=== PATIENT | female | born 1955 | race African-American/Black ===

== ENCOUNTER 2017-03-06 10:29 | Day surgery (SDC) | payer OTHER ==
[2017-03-01 17:29] VITALS: BMI 31.1
--- NOTE | 2017-03-06 12:46 | HP ---
Satellite H - Chief Complaint Chief Complaint: right trigger finger - Past Medical History Allergies/Adverse Reactions: Allergies Allergy/AdvReac Type Severity Reaction Status Date / Time Penicillins Allergy "Hives" Unverified 03/01/17 17:35 - Current Medications Current Medications: Home Medications Medication Instructions Recorded Omeprazole Magnesium [Prilosec 20 mg PO DAILY PRN 04/01/13 (OTC)] Albuterol Sulfate Inhaler - 1 - 2 inh PO PRN PRN 03/01/17 [Ventolin HFA Inhaler -] Montelukast Na [Singulair -] 10 mg PO DAILY 03/01/17 Hydrocodone/Acetaminophen [[place] 1 - 2 each PO Q6H #30 tablet MDD 8 03/06/17 5-325 Tablet] Satellite Physical Exam - Physical Examination Vital Signs: Vital Signs Period Temp Pulse Resp BP Sys/Dewitt Pulse Ox Last 24 Hr 98.1 F 90 18 125/71 100 General Appearance: Well Nourished, Well Developed, Alert & Oriented x3 ENT: Clear Lung: Normal air movement Heart: Regular rate & rhythm Extremities: Other (right ring finger- + ttp a1 nell, + locking, nvi) Neurological: Intact, Alert, Oriented Satellite Impression/Plan - Impression/Plan Impression: right ring trigger finger Operative Procedure: right ring trigger release Date to be Performed: 03/06/17
[2017-03-06] MEDS ORDERED: MIDAZOLAM HCL 2 MG/2 ML SINGLE DOSE VIAL ONE ×2 (13:46)
[2017-03-06] MEDS ORDERED: CLINDAMYCIN PHOSPHATE 600 MG/4 ML VIAL IVPB ONE (13:47)
[2017-03-06] MEDS ORDERED: PROPOFOL 20 ML ONE (13:50)
[2017-03-06] MEDS ORDERED: CLINDAMYCIN PHOSPHATE 600 MG/4 ML VIAL ONE (13:50)
[2017-03-06] MEDS ORDERED: BUPIVACAINE HCL/PF 0.5% (5MG/ML) 10 ML VIAL IJ ONE (13:57)
[2017-03-06] MEDS ORDERED: LIDOCAINE HCL 1%, 10 MG/ML (20ML VIAL) IJ ONE (13:57)
[2017-03-06] MEDS ORDERED: ACETAMINOPHEN 1000 MG/100 ML VIAL (NON FORMULARY) IVPB PRN (14:14)
[2017-03-06] MEDS ORDERED: ONDANSETRON 4 MG/2 ML VIAL IVPUSH PRN (14:14)
[2017-03-06] MEDS ORDERED: oxyCODONE HCL 5 MG TABLET PO PRN (14:14)
[2017-03-06] MEDS ORDERED: LACTATED RINGERS SOLUTION 1,000 ML IV SCH (14:15)
--- NOTE | 2017-03-06 14:15 | OP ---
Operative Note - Note: Operative Date: 03/06/17 Pre-Operative Diagnosis: right ring finger trigger finger Operation: right ring finger trigger finger release and tendon sheath excision Post-Operative Diagnosis: Same as Pre-op Surgeon: Alvarado Garvey Electric Shipyard Operator: Kev Menon Anesthesiologist/ROTATIONAL MOULDING OPERATOR: Oanh Alonso Anesthesia: General, Local Estimated Blood Loss (mls): 0 Drains, Volume Out (mls): 0 Blood Volume Replaced (mls): 0 Fluid Volume Replaced (mls): 500 Operative Report Dictated: Yes
--- NOTE | 2017-03-06 14:52 | SPEC ---
DATE OF OPERATION: 03/06/2017 PREOPERATIVE DIAGNOSIS: Right ring finger trigger finger. POSTOPERATIVE DIAGNOSIS: Right ring finger trigger finger. PROCEDURE: Right ring finger trigger finger release and tendon sheath excision. SURGEON: Delores Garvey MD MACHINE WHITENER: Kev Menon MD ANESTHESIOLOGIST: Celeste ANESTHESIA: MAC anesthesia with local injection of 6 mL of 0.5% Marcaine and 1% lidocaine mix. SPECIMEN: None. BLOOD LOSS: None. DRAINS: None. COMPLICATIONS: None. BLOOD GIVEN: None. INDICATIONS: The patient is a 61-year-old female with a preoperative diagnosis of a right ring finger trigger finger. After understanding the potential risks, complications, benefits, alternatives, benefits of the surgery vs. non-surgical treatment, the patient elected to undergo this procedure. PROCEDURE: The patient was brought to the operating room. IV was placed. IV sedation was given. One gram of intravenous Ancef given. A tourniquet was applied to the right upper arm and the right upper extremity was prepped and draped in sterile fashion. The entire case was done under 3.8 loupe magnification. A marking pen was utilized to jamal out a longitudinal incision in an already existing skin crease at the base of the right ring finger. Then, 6 mL of 0.5% Marcaine mixed with 1% lidocaine was injected in and around the incision. The right upper extremity was elevated, exsanguinated with an Esmarch bandage, and the tourniquet inflated to 250 mmHg. A No. 15 scalpel blade was utilized to cut down through the skin. Subcutaneous hemostasis was achieved with the bipolar cautery. Additional dissection was done with Littler scissors until I was able to directly visualize the A1 nell sheath in its entirety. Self-retaining retractors were placed into the wound. A Walsh elevator was used to free up the tissue on the radial side, the ulnar side distally and proximally under better visualization of A1 nell sheath. Next, using a fresh No. 15 scalpel blade, I excised the central one-third of the A1 nell sheath. I then completed the release, both distally and proximally, and brought the FDS and FDP tendons out through the wound with a Ragnell retractor. There were no abnormal points of compression. I was able to move the right ring finger without the tendons bunching up at all. The area was then copiously irrigated and washed out. I then checked one more time to make sure there were no abnormal points of compression. None were seen and therefore closure was begun. One stitch using 4-0 Vicryl was used in the deep dermal layer. Skin was reapproximated with 4-0 nylon sutures in a horizontal mattress fashion. The area was then washed and dried, covered with Xeroform gauze, sterile 4 x 4's, fluffs between the fingers, Webril and Coban. The tourniquet was taken down after a total tourniquet time of 10 minutes. There were no complications during the case. The patient tolerated the procedure well and was brought to the Ambulatory Recovery Room in stable condition. Kev Menon MD, dictating for MD DELORES Patel M.D. [id number]
[2017-03-06 15:59] VITALS: TEMP 98.2
[2017-03-06 18:01] VITALS: BP 130/70; PULSE 80
== END 2017-03-06 18:01 | disposition home or self-care (01) ==
LOC: JASU-SURG 10:29
PROVIDERS: ATTEND Orthopaedic Surgery
PROC: 0LB50ZZ Excision of Right Lower Arm and Wrist Tendon, Open Approach (ICD-10-PCS; 2017-03-06)
PROC: 0LN70ZZ Release Right Hand Tendon, Open Approach (ICD-10-PCS; principal; 2017-03-06 11:30)
DX: M65.341 Trigger finger, right ring finger (principal)
CPT/HCPCS: 94760

== ENCOUNTER 2017-12-06 12:49 | Emergency (ER) | payer OTHER ==
[2017-12-06 12:56] VITALS: BP 121/83; PULSE 88; TEMP 98; BMI 30.3
[2017-12-06] MEDS ORDERED: ALBUTEROL SO4 2.5/IPRATROPIUM 0.5 INH SOL 3 ML VIAL.NEB. NEB ONE ×2 (13:40→13:49)
[2017-12-06] MEDS ORDERED: predniSONE 20 MG TABLET (UD) PO ONE (13:40)
--- NOTE | 2017-12-06 13:40 | PDOC ---
History of Present Illness - General Chief Complaint: Asthma Stated Complaint: COUGH, WHEEZING Time Seen by Provider: 12/06/17 13:37 History Source: Patient Exam Limitations: No Limitations - History of Present Illness Initial Comments: 12/06/17 13:37 Patient is a 62-year-old female history of asthma, presents with 4 day of cough , wheezing feels a heaviness in chest when coughing. Cough is productive, emanuel sputum. Bronchospasm. Patient denies any chest pain, has shortness of breath with coughing. Back pain, no jaw pain. Patient was seen by her PMD yesterday given promethazine and clarithromycin however patient has not started medication yet. Past Medical History: Asthma, GERD. Allergies: Penicillin Medications: Pro-air, Singulair, omeprazole Family History: Non-contributory Social History: Denies smoking, alcohol use, or IVDU Review of Systems GENERAL/CONSTITUTIONAL: [No fever or chills. No weakness. No weight change.] HEAD, EYES, EARS, NOSE AND THROAT: [No change in vision. No ear pain or discharge. No sore throat. ] CARDIOVASCULAR: [No chest pain or shortness of breath.] RESPIRATORY: [ spasmodic cough, + wheezing, no hemoptysis or constipation. No rectal bleeding.] GENITOURINARY: [No dysuria, frequency, or change in urination.] MUSCULOSKELETAL: [No joint or muscle swelling or pain. No neck or back pain.] SKIN AND BREASTS: [No rash or easy bruising.] NEUROLOGIC: [No headache, vertigo, loss of consciousness, or loss of sensation.] PSYCHIATRIC: [No depression or anxiety.] ENDOCRINE: [No increased thirst. No abnormal weight change.] HEMATOLOGIC/LYMPHATIC: [No anemia, easy bleeding, or history of blood clots.] ALLERGIC/IMMUNOLOGIC: [No hives or skin allergy. No latex allergy.] Physical Exam: GENERAL: [The patient is awake, alert, and fully oriented, in no acute distress. ] HEAD: [Normal with no signs of trauma.] EYES: [Pupils equal, round and reactive to light, extraocular movements intact, sclera anicteric, conjunctiva clear.] ENT: [Ears normal, nares patent, oropharynx clear without exudates. Moist mucous membranes. No uvula deviation] NECK: [Normal range of motion, supple without lymphadenopathy, JVD, or masses.] LUNGS: Rhonchi and wheezing bilaterally, no crackles. HEART: [Regular rate and rhythm, normal S1 and S2 without murmur, rub or gallop. ] ABDOMEN: [Soft, nontender, normoactive bowel sounds. No guarding, no rebound. No masses. No bruising or abrasions] MUSCULOSKELETAL: [Normal range of motion, no edema. No clubbing or cyanosis. No cords, erythema, or tenderness. No CVA Tenderness with fist.] NEUROLOGICAL: [Cranial nerves II through XII grossly intact. Normal speech, normal gait.] SKIN: [Warm, Dry, normal turgor, no rashes or lesions noted.] 12/06/17 14:00 Past History - Past Medical History Allergies/Adverse Reactions: Allergies Allergy/AdvReac Type Severity Reaction Status Date / Time Penicillins Allergy Intermediate "Hives" Verified 12/06/17 14:35 Home Medications: Ambulatory Orders Albuterol Sulfate Inhaler - [Ventolin HFA Inhaler -] 1 - 2 inh PO PRN PRN Montelukast Na [Singulair -] 10 mg PO DAILY 03/01/17 Albuterol 0.083% Nebulizer Fang [Ventolin 0.083% Nebulizer Soln -] 1 neb NEB Q4H #30 vial 12/06/17 Clarithromycin [Biaxin -] 500 mg PO BID 12/06/17 Phenylephrine HCl/Prometh HCl [Promethazine-Phenylephrine Syr] 118 ml PO ASDIR 12/06/17 Prednisone [Deltasone] 20 mg PO DAILY #5 tablet 12/06/17 Anemia: No Asthma: Yes Cancer: No Cardiac Disorders: No CVA: No COPD: No CHF: No DVT: No Dementia: No Diabetes: No GI Disorders: Yes (GERD) Disorders: No HTN: No Hypercholesterolemia: No Liver Disease: No Seizures: No Thyroid Disease: No - Surgical History Abdominal Surgery: No Appendectomy: No Cardiac Surgery: No Cholecystectomy: No Lung Surgery: No Neurologic Surgery: No Orthopedic Surgery: No - Suicide/Smoking/Psychosocial Hx Smoking Status: No Smoking History: Never smoked Have you smoked in the past 12 months: No Number of Cigarettes Smoked Daily: 0 Information on smoking cessation initiated: No Hx Alcohol Use: No Drug/Substance Use Hx: No Substance Use Type: None Hx Substance Use Treatment: No *Physical Exam - Vital Signs Last Vital Signs Temp Pulse Resp BP Pulse Ox 98.0 F 88 18 121/83 100 12/06/17 12:53 12/06/17 12:53 12/06/17 12:53 12/06/17 12:53 12/06/17 12:53 Medical Decision Making - Medical Decision Making 12/06/17 13:49 A/P: Patient with URI and has been exacerbation Combivent and prednisone given in ER, will reevaluate. Combivent given with good result, however there is still bronchospasm, coughing noted. Second albuterol given. Patient is nontoxic appearing, no respiratory distress, s/p neb, the patient is sating 98%on room air. Comfortably with minimal coughing. I will DC patient home with albuterol for nebulizer, prednisone, patient to continue antibiotics and promethazine as ordered by Ramiro. I discussed the physical exam findings, ancillary test results and final diagnoses with the patient. I answered all of the patient's questions. The patient was satisfied with the care received and felt comfortable with the discharge plan and treatment plan. The patient will call to arrange follow-up and will return to the Emergency Department with any new, persistent or worsening symptoms. *DC/Admit/Observation/Transfer Diagnosis at time of Disposition: Upper respiratory infection Qualifiers: URI type: unspecified URI Qualified Code(s): J06.9 - Acute upper respiratory infection, unspecified - Discharge Dispostion Disposition: HOME Condition at time of disposition: Stable Admit: No - Prescriptions Prescriptions: Albuterol 0.083% Nebulizer Fang [Ventolin 0.083% Nebulizer Soln -] 1 neb NEB Q4H #30 vial Prednisone [Deltasone] 20 mg PO DAILY #5 tablet - Referrals Referrals: Suleman Collins MD [Primary Care Provider] - - Patient Instructions Printed Discharge Instructions: Asthma -- Adult, Acute Bronchitis (Alternative Therapy) Additional Instructions: Keep head of bed elevated 45 when sleeping Treatments every 4 hours as needed Cool air humidifier and sleeping Antibiotics and cough medicine as per PMD Followup in the primary care doctor's office in 2 days for evaluation. If any respiratory distress, increased cough, inability to drink, increased wheezing please return immediately to emergency department. - Post Discharge Activity Forms/Work/School Notes: Back to Work
[2017-12-06] MEDS ORDERED: predniSONE 20 MG TABLET (UD) ONE (13:49)
[2017-12-06] MEDS ORDERED: ALBUTEROL SO4 0.083% IH SOL 2.5 MG/3 ML VIAL.NEB. NEB ONE ×2 (14:29→14:30)
== END 2017-12-06 14:58 | disposition home or self-care (01) ==
LOC: JERFT 12:49
PROC: 3E0F7GC Introduction of Other Therapeutic Substance into Respiratory Tract, Via Natural or Artificial Opening (ICD-10-PCS; principal; 2017-12-06)
PROC: 3E0F7GC Introduction of Other Therapeutic Substance into Respiratory Tract, Via Natural or Artificial Opening (ICD-10-PCS; 2017-12-06)
DX: J98.01 Acute bronchospasm (principal); J06.9 Acute upper respiratory infection, unspecified
CPT/HCPCS: 99281-25

== ENCOUNTER 2019-04-16 14:49 | Emergency (ER) | payer OTHER | END 2019-04-16 16:02 | disposition home or self-care (01) | LOC: JERFT 14:49 ==

== ENCOUNTER 2021-06-10 13:40 | Emergency (ER) | payer OTHER ==
[2021-06-10 14:06] VITALS: BP 153/83; PULSE 86; TEMP 97; BMI 27.9
[2021-06-10] MEDS ORDERED: IBUPROFEN 400 MG TABLET (FP) PO ONE ×2 (14:18→14:46)
== END 2021-06-10 15:49 | disposition home or self-care (01) ==
LOC: JER 13:40
DX: M25.561 Pain in right knee (principal); M25.562 Pain in left knee; W01.0XXA Fall on same level from slipping, tripping and stumbling without subsequent striking against object, initial encounter
CPT/HCPCS: 73562-TC-LT-FY; 73562-TC-RT-FY; 99284-25

== ENCOUNTER 2022-01-10 16:10 | Emergency (ER) | payer OTHER ==
[2022-01-10 16:45] VITALS: BP 152/77; PULSE 83; TEMP 98; BMI 33.3
[2022-01-10] MEDS ORDERED: LIDOCAINE 5% TOPICAL PATCH TP ONE (17:41)
[2022-01-10] MEDS ORDERED: KETOROLAC TROMETHAMINE 30 MG/1 ML VIAL IM ONE (17:42)
[2022-01-10] MEDS ORDERED: LIDOCAINE 5% TOPICAL PATCH ONE (17:46)
[2022-01-10] MEDS ORDERED: KETOROLAC TROMETHAMINE 30 MG/1 ML VIAL ONE (17:46)
[2022-01-10 18:38] LABS: HCG,QUALITATIVE URINE Negative
[2022-01-10 18:44] LABS: URINE APPEARANCE CLEAR; URINE BILIRUBIN NEGATIVE (NEGATIVE); URINE COLOR YELLOW; URINE GLUCOSE (UA) NEGATIVE (NEGATIVE); URINE KETONE NEGATIVE (NEGATIVE); URINE LEUK ESTERASE NEGATIVE (NEGATIVE); URINE NITRITE NEGATIVE (NEGATIVE); URINE PROTEIN NEGATIVE (NEGATIVE); URINE UROBILINOGEN 0.2 mg/dL (0.2-1.0)
[2022-01-10] MEDS ORDERED: LIDOCAINE PATCH REMOVAL MC ONE (22:00)
== END 2022-01-10 18:56 | disposition home or self-care (01) ==
LOC: JERFT 16:10
PROC: 3E0233Z Introduction of Anti-inflammatory into Muscle, Percutaneous Approach (ICD-10-PCS; principal; 2022-01-10)
DX: M54.50 Low back pain, unspecified (principal)
CPT/HCPCS: 81003; 84703; 87086; 99284-25

== ENCOUNTER 2022-09-11 13:17 | Emergency (ER) | payer OTHER ==
[2022-09-11 13:44] VITALS: BP 124/78; PULSE 106; RESP 16; TEMP 99.9; BMI 31.1
[2022-09-11] MEDS ORDERED: DEXAMETHASONE SOD PHOSPHATE 10 MG/1 ML VIAL PO ONE (15:12)
[2022-09-11] MEDS: ALBUTEROL SO4 2.5/IPRATROPIUM 0.5 INH SOL 3 ML VIAL.NEB. NEB SCH ×3 (15:22→15:58)
[2022-09-11] MEDS ORDERED: DEXAMETHASONE SOD PHOSPHATE 10 MG/1 ML VIAL ONE (15:25)
[2022-09-11] MEDS ORDERED: ALBUTEROL SO4 2.5/IPRATROPIUM 0.5 INH SOL 3 ML VIAL.NEB. NEB ONE (15:25)
== END 2022-09-11 16:05 | disposition home or self-care (01) ==
LOC: JER 13:17
PROC: 3E0F7GC Introduction of Other Therapeutic Substance into Respiratory Tract, Via Natural or Artificial Opening (ICD-10-PCS; principal; 2022-09-11)
DX: J09.X2 Influenza due to identified novel influenza A virus with other respiratory manifestations (principal); R05.1 Acute cough; J02.9 Acute pharyngitis, unspecified
CPT/HCPCS: 0241U-QW; 99283-25; J1100

== ENCOUNTER 2023-08-07 17:22 | Emergency (ER) | payer OTHER ==
[2023-08-07 17:34] VITALS: RESP 18; BMI 34.6
[2023-08-07 18:32] VITALS: BP 129/82; PULSE 86; TEMP 99.1
[2023-08-07] MEDS ORDERED: ALBUTEROL SO4 2.5/IPRATROPIUM 0.5 INH SOL 3 ML VIAL.NEB. NEB ONE ×2 (19:36→20:03)
[2023-08-07 20:41] LABS: BASO % 0.5 % (0-2.0); EOS % 2.7 % (0-4.5); HEMATOCRIT 40.5 % (32.4-45.2); HEMOGLOBIN 13.5 GM/dL (10.7-15.3); LYMPH % 25.6 % (8-40); MCH 28.2 pg (25.7-33.7); MCHC 33.4 g/dl (32.0-36.0); MEAN CELL VOLUME 84.3 fl (80-96); MEAN PLT VOLUME 7.7 fl (7.5-11.1); MONO % 7.4 % (3.8-10.2); NEUT % 63.8 % (42.8-82.8); PLATELET COUNT 252 10^3/uL (134-434); RBC 4.81 M/mm3 (3.60-5.2); RDW 14.2 % (11.6-15.6); WHITE BLOOD COUNT 7.8 K/mm3 (4.0-10.0)
[2023-08-07 21:21] LABS: CALCIUM 8.6 mg/dL (8.5-10.1)
[2023-08-07 21:22] LABS: ALBUMIN 3.5 g/dl (3.4-5.0); BLOOD UREA NITROGEN 9.5 mg/dL (7-18)
[2023-08-07 21:25] LABS: CREATININE 0.6 mg/dL (0.55-1.3)
[2023-08-07 21:26] LABS: BILIRUBIN,TOTAL 0.2 mg/dL (0.2-1)
[2023-08-07 21:27] LABS: TOT PROT 6.6 g/dl (6.4-8.2)
[2023-08-07] MEDS ORDERED: ALBUTEROL SO4 HFA INHALER IH ONE ×2 (22:27→22:31)
[2023-08-07] MEDS ORDERED: methylPREDNISolone NA SUCC 125 MG/2 ML VIAL IVPB ONE (22:27)
[2023-08-07] MEDS ORDERED: methylPREDNISolone NA SUCC 125 MG/2 ML VIAL ONE (22:32)
== END 2023-08-07 23:43 | disposition home or self-care (01) ==
LOC: JER 17:22
PROC: 3E033GC Introduction of Other Therapeutic Substance into Peripheral Vein, Percutaneous Approach (ICD-10-PCS; principal; 2023-08-07)
PROC: 3E0F7GC Introduction of Other Therapeutic Substance into Respiratory Tract, Via Natural or Artificial Opening (ICD-10-PCS; 2023-08-07)
PROC: 3E0F7GC Introduction of Other Therapeutic Substance into Respiratory Tract, Via Natural or Artificial Opening (ICD-10-PCS; 2023-08-07)
DX: R05.9 Cough, unspecified (principal); R07.9 Chest pain, unspecified; J02.9 Acute pharyngitis, unspecified; R06.02 Shortness of breath; R06.2 Wheezing; Z20.822 Contact with and (suspected) exposure to COVID-19
CPT/HCPCS: 0241U-QW; 36415; 71046-TC-FY; 80053; 83880; 84484; 85025; 93005; 93010; 99285-25

== ENCOUNTER 2023-09-10 15:31 | Emergency (ER) | payer OTHER ==
[2023-09-10 15:45] VITALS: BP 139/84; PULSE 85; RESP 18; TEMP 97.6; BMI 31.1
[2023-09-10] MEDS: ALBUTEROL SO4 2.5/IPRATROPIUM 0.5 INH SOL 3 ML VIAL.NEB. NEB SCH ×2 (17:04→17:05)
[2023-09-10] MEDS ORDERED: ALBUTEROL SO4 2.5/IPRATROPIUM 0.5 INH SOL 3 ML VIAL.NEB. NEB ONE (17:06)
[2023-09-10] MEDS ORDERED: ACETAMINOPHEN WITH CODEINE 300MG/30MG TABLET PO ONE (17:44)
[2023-09-10] MEDS ORDERED: ACETAMINOPHEN WITH CODEINE 300MG/30MG TABLET ONE (17:54)
== END 2023-09-10 18:58 | disposition home or self-care (01) ==
LOC: JERFT 15:31
PROC: 3E0F7GC Introduction of Other Therapeutic Substance into Respiratory Tract, Via Natural or Artificial Opening (ICD-10-PCS; principal; 2023-09-10)
DX: R05.2 Subacute cough (principal); R06.02 Shortness of breath; M54.9 Dorsalgia, unspecified; Z20.822 Contact with and (suspected) exposure to COVID-19
CPT/HCPCS: 0241U-QW; 71046-TC-FY; 99284-25

== ENCOUNTER 2023-10-02 20:12 | Emergency (ER) | payer OTHER ==
[2023-10-02 20:39] VITALS: TEMP 98.6; BMI 31.4
[2023-10-03] MEDS ORDERED: ACETAMINOPHEN 325 MG TABLET (FP) PO ONE (01:03)
[2023-10-03] MEDS ORDERED: ACETAMINOPHEN 325 MG TABLET (FP) ONE ×2 (01:24→01:35)
[2023-10-03 03:49] VITALS: BP 157/76; PULSE 70; RESP 19
== END 2023-10-03 03:49 | disposition home or self-care (01) ==
LOC: JER 20:12
DX: M54.50 Low back pain, unspecified (principal); S39.012A Strain of muscle, fascia and tendon of lower back, initial encounter; M25.552 Pain in left hip; M54.2 Cervicalgia; R51.9 Headache, unspecified; V49.50XA Passenger injured in collision with unspecified motor vehicles in traffic accident, initial encounter; Y92.410 Unspecified street and highway as the place of occurrence of the external cause
CPT/HCPCS: 70450-TC; 72125-TC; 72131-TC; 72192-TC; 99284-25

== ENCOUNTER 2023-12-11 07:46 | Day surgery (SDC) | payer OTHER ==
[2023-12-06 09:56] VITALS: BMI 31.2
[2023-12-11] MEDS: PHENYLEPHRINE 2.5% OPTHALMIC DROP 2ML BOTTLE ONE (08:15)
[2023-12-11] MEDS: CIPROFLOXACIN 0.3% EYE DROPS 5 ML BOTTLE ONE (08:15)
[2023-12-11] MEDS: CYCLOPENTOLATE 2% OPHTH SOLN 2 ML BOTTLE ONE (08:15)
[2023-12-11] MEDS: TROPICAMIDE 1% OPHTH SOLN 15 ML BOTTLE ONE (08:15)
[2023-12-11] MEDS ORDERED: BSS (NA/CA/MG/K) BALANCED SALT SOLUTION OPHTH SOLN 15 ML BOTTLE ONE (09:00)
[2023-12-11] MEDS ORDERED: TETRACAINE 0.5% OPHTH SOLN 2 ML BOTTLE ONE (09:00)
[2023-12-11] MEDS ORDERED: CARBACHOL 0.01% INTRA-OCULAR 1.5 ML VIAL ONE (09:00)
[2023-12-11] MEDS ORDERED: LIDOCAINE 1% P/F 10 MG/ML VIAL ONE (09:00)
[2023-12-11] MEDS ORDERED: NEO/POLYMYX B SULF/DEXAMETH OPHTHALMIC 5ML BOTTLE ONE (09:00)
[2023-12-11] MEDS ORDERED: MIDAZOLAM HCL 2 MG/2 ML SINGLE DOSE VIAL ONE (09:37)
[2023-12-11 13:40] VITALS: TEMP 97.1
[2023-12-11 14:05] VITALS: BP 136/86; PULSE 74; RESP 16
== END 2023-12-11 11:40 | disposition home or self-care (01) ==
LOC: FASU 07:46
PROVIDERS: ATTEND Ophthalmology
PROC: 08RJ3JZ Replacement of Right Lens with Synthetic Substitute, Percutaneous Approach (ICD-10-PCS; principal; 2023-12-11 10:18)
DX: H26.8 Other specified cataract (principal)
CPT/HCPCS: 66984; V2632

== ENCOUNTER 2023-12-12 19:24 | Emergency (ER) | payer OTHER ==
[2023-12-12 19:41] VITALS: BP 141/97; PULSE 66; RESP 18; TEMP 97.9; BMI 68.9
[2023-12-12 21:39] LABS: BASO % 0.6 % (0-2.0); EOS % 0.5 % (0-4.5); HEMATOCRIT 46.7 % (32.4-45.2); HEMOGLOBIN 15.4 GM/dL (10.7-15.3); LYMPH % 22.1 % (8-40); MCH 28.4 pg (25.7-33.7); MCHC 32.9 g/dl (32.0-36.0); MEAN CELL VOLUME 86.4 fl (80-96); MONO % 6.4 % (3.8-10.2); NEUT % 70.4 % (42.8-82.8); PLATELET COUNT 286 10^3/uL (134-434); RBC 5.41 M/mm3 (3.60-5.2); WHITE BLOOD COUNT 11.6 K/mm3 (4.0-10.0)
[2023-12-12] MEDS ORDERED: ALBUTEROL SO4 2.5/IPRATROPIUM 0.5 INH SOL 3 ML VIAL.NEB. NEB ONE (21:48)
[2023-12-12 21:50] LABS: INR 1.09 (0.83-1.09); PROTHROMBIN TIME (PATIENT) 12.6 SEC (9.7-13.0)
[2023-12-12] MEDS: SODIUM CHLORIDE 0.9% 500 ML INFUS.BAG IV ONE (22:01)
[2023-12-12] MEDS: ALBUTEROL SO4 2.5/IPRATROPIUM 0.5 INH SOL 3 ML VIAL.NEB. NEB ONE (22:01)
[2023-12-12 22:05] LABS: CALCIUM 9.9 mg/dL (8.5-10.1)
[2023-12-12 22:06] LABS: BLOOD UREA NITROGEN 11.4 mg/dL (7-18)
[2023-12-12 22:08] LABS: MAGNESIUM 2.4 mg/dL (1.8-2.4)
[2023-12-12 22:09] LABS: BILIRUBIN,TOTAL 0.6 mg/dL (0.2-1); CREATININE 0.8 mg/dL (0.55-1.3)
[2023-12-12 22:11] LABS: TOT PROT 7.3 g/dl (6.4-8.2)
[2023-12-12 22:46] LABS: POTASSIUM 4.3 mmol/L (3.5-5.1)
== END 2023-12-13 00:10 | disposition home or self-care (01) ==
LOC: JER 19:24
PROC: 3E0F7GC Introduction of Other Therapeutic Substance into Respiratory Tract, Via Natural or Artificial Opening (ICD-10-PCS; principal; 2023-12-12)
DX: R07.2 Precordial pain (principal); R06.02 Shortness of breath; Z20.822 Contact with and (suspected) exposure to COVID-19
CPT/HCPCS: 0241U-QW; 36415; 71045-TC-FY; 80053; 83735; 84484; 85025; 85610; 85730; 93005; 93010; 99285-25

== ENCOUNTER 2024-01-22 09:05 | Day surgery (SDC) | payer OTHER ==
[2024-01-16 12:35] VITALS: BMI 31.2
[2024-01-22] MEDS: CYCLOPENTOLATE 2% OPHTH SOLN 2 ML BOTTLE ONE (09:30)
[2024-01-22] MEDS: CIPROFLOXACIN 0.3% EYE DROPS 5 ML BOTTLE ONE (09:30)
[2024-01-22] MEDS: TROPICAMIDE 1% OPHTH SOLN 15 ML BOTTLE ONE (09:30)
[2024-01-22] MEDS: PHENYLEPHRINE 2.5% OPTHALMIC DROP 2ML BOTTLE ONE (09:30)
[2024-01-22] MEDS ORDERED: TETRACAINE 0.5% OPHTH SOLN 2 ML BOTTLE ONE (10:28)
[2024-01-22] MEDS ORDERED: CARBACHOL 0.01% INTRA-OCULAR 1.5 ML VIAL ONE (10:28)
[2024-01-22] MEDS ORDERED: EPINEPHrine/PF 1 MG/1 ML (1:1,000) AMPULE ONE (10:28)
[2024-01-22] MEDS ORDERED: NEO/POLYMYX B SULF/DEXAMETH OPHTHALMIC 5ML BOTTLE ONE (10:28)
[2024-01-22] MEDS ORDERED: BSS (NA/CA/MG/K) BALANCED SALT SOLUTION OPHTH SOLN 15 ML BOTTLE ONE (10:28)
[2024-01-22] MEDS ORDERED: LIDOCAINE 1% P/F 10 MG/ML VIAL ONE (10:28)
[2024-01-22] MEDS ORDERED: MIDAZOLAM HCL 2 MG/2 ML SINGLE DOSE VIAL ONE (10:46)
[2024-01-22 11:18] VITALS: RESP 18; TEMP 97.5
[2024-01-22 11:48] VITALS: BP 142/82; PULSE 86
== END 2024-01-22 11:45 | disposition home or self-care (01) ==
LOC: FASU 09:05
PROVIDERS: ATTEND Ophthalmology
PROC: 08RK3JZ Replacement of Left Lens with Synthetic Substitute, Percutaneous Approach (ICD-10-PCS; principal; 2024-01-22 10:53)
DX: H26.8 Other specified cataract (principal)
CPT/HCPCS: 66984; V2632

== ENCOUNTER 2024-04-06 12:41 | Emergency (ER) | payer OTHER ==
[2024-04-06 12:47] VITALS: BP 104/68; PULSE 100; RESP 18; TEMP 98.6; BMI 23.3
[2024-04-06] MEDS ORDERED: ALBUTEROL SO4 2.5/IPRATROPIUM 0.5 INH SOL 3 ML VIAL.NEB. NEB ONE ×2 (13:47→15:30)
[2024-04-06] MEDS ORDERED: ACETAMINOPHEN 325 MG TABLET (FP) ONE (13:47)
[2024-04-06] MEDS: ACETAMINOPHEN 325 MG TABLET (FP) PO ONE (13:50)
[2024-04-06] MEDS: ALBUTEROL SO4 2.5/IPRATROPIUM 0.5 INH SOL 3 ML VIAL.NEB. NEB ONE ×2 (13:50→15:35)
[2024-04-06] MEDS ORDERED: predniSONE 20 MG TABLET (UD) ONE (15:30)
[2024-04-06] MEDS: predniSONE 20 MG TABLET (UD) PO ONE (15:35)
== END 2024-04-06 16:02 | disposition home or self-care (01) ==
LOC: JERFT 12:41
PROC: 3E0F7GC Introduction of Other Therapeutic Substance into Respiratory Tract, Via Natural or Artificial Opening (ICD-10-PCS; principal; 2024-04-06)
PROC: 3E0F7GC Introduction of Other Therapeutic Substance into Respiratory Tract, Via Natural or Artificial Opening (ICD-10-PCS; 2024-04-06)
DX: R05.9 Cough, unspecified (principal); R09.81 Nasal congestion; M79.10 Myalgia, unspecified site; R68.83 Chills (without fever); R07.89 Other chest pain; R42 Dizziness and giddiness; R00.2 Palpitations; R55 Syncope and collapse; U07.1 COVID-19; J06.9 Acute upper respiratory infection, unspecified; J45.20 Mild intermittent asthma, uncomplicated
CPT/HCPCS: 0241U-QW; 71046-TC-FY; 99284-25

== ENCOUNTER → 2024-08-28 | Day surgery (SDC) | payer OTHER | END | disposition home or self-care (01) | LOC: JRADIR 09:59 | PROVIDERS: ATTEND Internal Medicine | PROC: 0G9G3ZX Drainage of Left Thyroid Gland Lobe, Percutaneous Approach, Diagnostic (ICD-10-PCS; principal; 2024-08-28) | DX: E04.1 Nontoxic single thyroid nodule (principal) | CPT/HCPCS: 10005; 76942; 85379; 88173; 88305-TC ==